=== PATIENT | female | born 1985 | race Caucasian/White ===

== ENCOUNTER 2017-01-25 13:32 | Emergency (ER) | payer OTHER ==
[2017-01-25 13:45] VITALS: RESP 18
--- NOTE | 2017-01-25 14:14 | ED ---
Seizure HPI - General Chief Complaint: Seizure Stated Complaint: seizure Time Seen by Provider: 01/25/17 13:43 Source: patient, EMS, RN notes reviewed Mode of arrival: EMS Limitations: no limitations - History of Present Illness Initial Comments: This a 31-year-old female presents emergency department via EMS for seizure. Patient was on the bus and had a seizure. She has a known history of SEIZURES. Patient takes Keppra and states that she has been taking her medication. Patient states that she sees Dr. yang for her neurologist. Patient states she has mild headache but states is normal for after having seizure. She denies any chest pain, shortness breath, fever, chills, blurred vision or any focal weakness. Patient states she is diabetic and does take metformin and Lantus. - Related Data Home Medications Medication Instructions Recorded Confirmed Acetaminophen Tab [Tylenol Tab] 650 mg PO Q6H PRN 01/25/17 01/25/17 Albuterol Inhaler [Ventolin Hfa 2 puff INHALATION RT-QID PRN 01/25/17 01/25/17 Inhaler] Insulin Glargine [Lantus] 40 unit SQ HS 01/25/17 01/25/17 levETIRAcetam [Keppra] 1,000 mg PO DAILY 01/25/17 01/25/17 metFORMIN HCL 1,000 mg PO BID 01/25/17 01/25/17 Allergies Allergy/AdvReac Type Severity Reaction Status Date / Time bee pollen Allergy Anaphylaxis Verified 01/25/17 14:21 cephalexin [From Keflex] Allergy Rash/Hives Verified 01/25/17 14:21 divalproex sodium Allergy Anaphylaxis Verified 01/25/17 14:21 [From Depakote] Penicillins Allergy Rash/Hives Verified 01/25/17 14:21 AMBEREN Allergy Anaphylaxis Uncoded 01/25/17 14:21 CHESTNUTS Allergy Unknown Uncoded 01/25/17 14:21 PAPER TAPE Allergy Rash/Hives Uncoded 01/25/17 14:21 Review of Systems ROS Statement: Those systems with pertinent positive or pertinent negative responses have been documented in the HPI. ROS Other: All systems not noted in ROS Statement are negative. Past Medical History Past Medical History: Asthma, Diabetes Mellitus, Hypertension, Seizure Disorder History of Any Multi-Drug Resistant Organisms: None Reported Past Surgical History: No Surgical Hx Reported Past Psychological History: No Psychological Hx Reported Smoking Status: Never smoker Past Alcohol Use History: None Reported Past Drug Use History: None Reported General Exam Limitations: no limitations General appearance: alert, in no apparent distress, obese Head exam: Present: atraumatic, normocephalic, normal inspection Eye exam: Present: normal appearance, PERRL, EOMI. Absent: scleral icterus, conjunctival injection, periorbital swelling ENT exam: Present: normal exam, normal oropharynx, mucous membranes moist, TM's normal bilaterally, normal external ear exam Neck exam: Present: normal inspection, full ROM. Absent: tenderness, meningismus, lymphadenopathy Respiratory exam: Present: normal lung sounds bilaterally. Absent: respiratory distress, wheezes, rales, rhonchi, stridor Cardiovascular Exam: Present: regular rate, normal rhythm, normal heart sounds. Absent: systolic murmur, diastolic murmur, rubs, gallop, clicks Extremities exam: Present: normal inspection, full ROM, normal capillary refill. Absent: tenderness, pedal edema, joint swelling, calf tenderness Neurological exam: Present: alert, oriented X3, CN II-XII intact Skin exam: Present: warm, dry, intact, normal color. Absent: rash Course Vital Signs 01/25/17 01/25/17 01/25/17 13:41 14:26 15:00 Temperature 97.6 F Pulse Rate 85 80 86 Respiratory 18 18 18 Rate Blood Pressure 109/66 102/61 125/81 O2 Sat by Pulse 98 96 97 Oximetry Medical Decision Making - Lab Data Result diagrams: 01/25/17 13:57 01/25/17 13:57 Lab Results 01/25/17 01/25/17 Range/Units 13:57 13:57 WBC 9.3 (3.8-10.6) k/uL RBC 4.75 (3.80-5.40) m/uL Hgb 14.0 (11.4-16.0) gm/dL Hct 40.6 (34.0-46.0) % MCV 85.4 (80.0-100.0) fL MCH 29.4 (25.0-35.0) pg MCHC 34.4 (31.0-37.0) g/dL RDW 12.2 (11.5-15.5) % Plt Count 201 (150-450) k/uL Neutrophils % 56 % Lymphocytes % 35 % Monocytes % 5 % Eosinophils % 1 % Basophils % 1 % Neutrophils # 5.2 (1.3-7.7) k/uL Lymphocytes # 3.2 (1.0-4.8) k/uL Monocytes # 0.4 (0-1.0) k/uL Eosinophils # 0.1 (0-0.7) k/uL Basophils # 0.1 (0-0.2) k/uL Sodium 141 (137-145) mmol/L Potassium 4.3 (3.5-5.1) mmol/L Chloride 105 (98-107) mmol/L Carbon Dioxide 22 (22-30) mmol/L Anion Gap 14 mmol/L BUN 20 H (7-17) mg/dL Creatinine 0.94 (0.52-1.04) mg/dL Est GFR (MDRD) Af Amer >60 (>60 ml/min/1.73 sqM) Est GFR (MDRD) Non-Af >60 (>60 ml/min/1.73 sqM) Glucose 152 H (74-99) mg/dL Calcium 9.2 (8.4-10.2) mg/dL Total Bilirubin 0.9 (0.2-1.3) mg/dL AST 21 (14-36) U/L ALT 35 (9-52) U/L Alkaline Phosphatase 90 (38-126) U/L Total Protein 6.9 (6.3-8.2) g/dL Albumin 4.0 (3.5-5.0) g/dL 01/25/17 16:06 EKG performed at 13:43 normal sinus rhythm with possible left atrial enlargement with a rate of 91 CT interval 166 QS duration 84 QTC is QTC 360/442 Disposition Clinical Impression: Generalized seizure Disposition: HOME SELF-CARE Condition: Stable Instructions: Recurrent Seizures in Adults (ED) Additional Instructions: Please return to the Emergency Department if symptoms worsen or any other concerns. Referrals: Nonstaff,Physician [REFERRING] - 1-2 days Time of Disposition: 16:08
[2017-01-25 14:17] LABS: Basophils # (A) 0.1 k/uL (0-0.2); Basophils % (A) 1 %; CH 29.3; CHCM 34.5; Eosinophils # (A) 0.1 k/uL (0-0.7); Eosinophils % (A) 1 %; HCT 40.6 % (34.0-46.0); HDW 2.38; Luc # (Auto) 0.23; Luc % (Auto) 3; Lymphocytes # (A) 3.2 k/uL (1.0-4.8); Lymphocytes % (A) 35 %; MCH 29.4 pg (25.0-35.0); MCHC 34.4 g/dL (31.0-37.0); MCV 85.4 fL (80.0-100.0); Mean Platelet Volume 9.2; Monocytes # (A) 0.4 k/uL (0-1.0); Monocytes % (A) 5 %; Neutrophils # (A) 5.2 k/uL (1.3-7.7); Neutrophils % (A) 56 %; RBC 4.75 m/uL (3.80-5.40); RDW 12.2 % (11.5-15.5); WBC 9.3 k/uL (3.8-10.6)
[2017-01-25 14:27] LABS: ALT 35 U/L (9-52); AST 21 U/L (14-36); Alkaline Phosphatase 90 U/L (38-126); Anion Gap 14 mmol/L; Blood Urea Nitrogen 20 mg/dL (7-17); Calcium 9.2 mg/dL (8.4-10.2); Carbon Dioxide 22 mmol/L (22-30); Chloride 105 mmol/L (98-107); Glucose 152 mg/dL (74-99); Non-African American GFR(MDRD) >60 (>60 ml/min/1.73 sqM); Potassium 4.3 mmol/L (3.5-5.1); Sodium 141 mmol/L (137-145); Total Bilirubin 0.9 mg/dL (0.2-1.3); Total Protein 6.9 g/dL (6.3-8.2)
[2017-01-25 16:16] VITALS: BP 129/83; PULSE 79; TEMP 98.9
== END 2017-01-25 16:16 | disposition home or self-care (01) ==
LOC: EC 13:32
DX: G40.409 Other generalized epilepsy and epileptic syndromes, not intractable, without status epilepticus (principal); E11.9 Type 2 diabetes mellitus without complications; Z88.1 Allergy status to other antibiotic agents; Z88.0 Allergy status to penicillin; Z91.048 Other nonmedicinal substance allergy status; Z88.8 Allergy status to other drugs, medicaments and biological substances; Z91.018 Allergy to other foods; Z79.4 Long term (current) use of insulin; Z79.84 Long term (current) use of oral hypoglycemic drugs; Z79.899 Other long term (current) drug therapy
CPT/HCPCS: 36415; 80053; 80177; 80306; 85025; 93005; 99284

== ENCOUNTER 2017-11-12 12:30 | Inpatient (IN) | payer MEDICAID, OTHER ==
[2017-11-12 15:10] VITALS: BMI 49.9
[2017-11-12] MEDS ORDERED: MAG HYDROX/AL HYDROX/SIMETH 30 ML CUP PO PRN (15:28)
[2017-11-12] MEDS ORDERED: MAGNESIUM HYDROXIDE 2,400 MG/10 ML CUP PO PRN (15:28)
[2017-11-12] MEDS ORDERED: ACETAMINOPHEN TAB 325 MG TAB PO PRN (15:28)
[2017-11-12] MEDS ORDERED: hydrOXYzine PAMOATE 25 MG CAP PO PRN (15:44)
[2017-11-12 15:53] LABS: Glucose,Whole Blood 139 mg/dL (75-99)
--- NOTE | 2017-11-12 16:03 | P.HP ---
Psychiatric H&P - . H&P Date: 11/12/17 History & Physical: Allergies Allergy/AdvReac Type Severity Reaction Status Date / Time amoxicillin Allergy Rash/Hives Verified 11/12/17 14:48 bee pollen Allergy Anaphylaxis Verified 11/12/17 14:48 cephalexin [From Keflex] Allergy Rash/Hives Verified 11/12/17 14:48 divalproex sodium Allergy Anaphylaxis Verified 11/12/17 14:48 [From Depakote] imipramine Allergy Unknown Verified 11/12/17 14:48 levofloxacin [From Levaquin] Allergy Unknown Verified 11/12/17 14:48 Penicillins Allergy Rash/Hives Verified 11/12/17 14:48 AMBEREN Allergy Anaphylaxis Uncoded 01/25/17 14:21 CHESTNUTS Allergy Unknown Uncoded 01/25/17 14:21 PAPER TAPE Allergy Rash/Hives Uncoded 01/25/17 14:21 Vital Signs Temp 98.3 F 11/12/17 14:43 Pulse 95 11/12/17 14:43 Resp 18 11/12/17 14:43 BP 125/94 11/12/17 14:43 Pulse Ox Intake & Output 11/11/17 11/12/17 11/12/17 18:59 06:59 18:59 Weight 127.9 kg 11/12/17 15:46 Identification: Mariana Verdin is a 32 years old white female living in [facility] she was admitted to [facility] on 2017 under petition stating that she is suicidal. History of present illness: Patient said she has been upset about her pending divorce, her coming in and out getting into argument which they had prior to her recent incident of cutting herself. She said she has anxiety and depression since she was a kid she said it is continuous and doesn't get better or worse. She said she gets panic attacks at times on a weekly basis depending on the situation lasting from 5-10 minutes. She said she has PTSD since 2002 since her son was removed from her custody for medical neglect. She gets flashbacks and nightmares of this incident. She also gets nightmares about her traumas from childhood. She had tried to hang herself and cut herself multiple times until she was 14 years of age. She denies any issues with throwing temper tantrums. She denies hearing voices or delusional thinking. Previous psychiatric history/drug and alcohol abuse: She was in psychiatric hospitals about 30 times from age [age]. Since age 14 she was in psychiatric hospital only wants. She takes Ativan 1 mg twice a day on a when necessary basis for anxiety this is prescribed by her family doctor she denies abusing drugs and alcohol. Next Previous medical history she is ALLERGIC to amoxicillin bee stings Keflex Depakote imipramine Levaquin penicillins Ambien chestnuts and paper tape. She has diabetes bronchial asthma and seizure disorder. She does not have any menstrual periods since she is on Depo-Provera. She has 4 children and had to spontaneous abortions. She had tonsillectomy and adenoidectomy and tubes put in her ears. Social history: She quit the school in 12th grade. She said she had ADHD but it is gone since becoming an adult. She was cutting classes and was suspended several times. She was put in foster home at the age of 5 since her mother could not take care of her. She was in several foster homes. She was living with her for about 23 years and has been for the last 7-8 years. They have been since August 2017. Currently she lives with her 3 children. One son has a court hearing for 7 counts of behavior problems. She is on SSI and has Medicaid. She was not in the service. She is [employer] and goes to [employer]. She has pending divorce. She is heterosexual. Family history: Her father of stroke he also had hypertension. Mother apparently has schizophrenia and some depression. One son has behavioral problems. Mental status examination: This is an obese ambulatory white female with adequate hygiene. She has multiple scratch vasquez on both forearms likes etc. which were self-inflicted recently. Her speech is spontaneous relevant and goal -directed. Mood is mildly anxious and dysphoric with labile affect. She denies hallucinations and delusional thinking. She insists that she is not suicidal or homicidal. Her insight is fair and judgment is impaired as evidenced by her recent self abusive behavior. She is well oriented. She is able to recall 2 out of 3 items after 5 minutes. She is able to name only the last 2 presidents when she was asked to name the last 4. She is able to spell house correctly but spelled it backwards as [facility]. She said [id number] and 56 is 30. 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 Diabetes mellitus Bronchial asthma Seizure disorder Obesity. Treatment plan: She will have physical examination and psychosocial evaluation. She will receive milieu therapy group therapy individual therapy occupational therapy recreational therapy and medication education She will not eat placed on suicide precautions since she promised not to do anything to hurt herself and her recent behavior appears to be only results of her personality disorder of self abusive behavior than a suicide attempt. Vistaril on when necessary basis for anxiety. Will continue Keppra, insulin and albuterol inhaler for physical problems. She agreed to sign voluntary application to stay in the hospital. Discharge with outpatient follow-up. Treatment goals: She will be free of self abusive behavior. She will learn better coping skills. Estimated length of stay: 3-5 days.
--- NOTE | 2017-11-12 17:47 | P.HPIM ---
History of Present Illness H&P Date: 11/12/17 Chief Complaint: suicidal Patient is a 32-year-old female with a past medical history of diabetes, asthma, seizure disorder, and morbid obesity. She is admitted to the mental health unit for suicidal behaviors. Patient seen and examined at bedside. She says she's been under increased stress secondary to her divorce and has been self inflicting wounds. She has a history of diabetes and has been on metformin for years. In the past her blood sugars have been up to 1000. They have been slowly coming down. She is to take Lantus but now has only been taking it as needed. She takes metformin thousand milligrams twice daily. She states her recent blood sugars have been around 130. Her last hemoglobin A1c was in September and she states it was 7.8. She has been losing weight and has lost approximately 100 pounds. She had pneumonia back in September but has otherwise not had any recent illnesses. She states her blood pressure was up when she was in the emergency department but it has never been up before. She states that her last seizure was yesterday. She has these intermittently and was unable to tell me how often she has seizures. She does follow with a neurologist in [place]. Review of Systems General: no fever/chills, no rigors, weight loss-intentional, no unusual fatigue Eyes: no noticeable visual changes, no loss of vision ENT: no rhinorrhea, no congestion, no sore throat Cardiovascular: no chest pain, no palpitations, no preyncope/syncope, no edema Pulmonary: no shortness of breath, no wheezing, no cough Abdominal: no abdominal pain, no constipation, no diarrhea, no vomiting, no nausea Genitourinary: no dysuria, no urinary frequency, no unusual discharge/odor Neuro: no unusual parenthesia, no unusual paresis/paralysis, no headache Dermatologic: no unusual rashes, no unusual lesions, no unusual changes in nails Hematologic: no hemoptysis, no hematuria, no melena/hematochezia Psychiatric: + Depression/anxiety, no changes in sleep pattern Past Medical History Past Medical History: Asthma, Diabetes Mellitus, Seizure Disorder History of Any Multi-Drug Resistant Organisms: None Reported Past Surgical History: Adenoidectomy, Tonsillectomy Additional Past Surgical History / Comment(s): Tympanostomy tubes, uvula removed Smoking Status: Never smoker Past Alcohol Use History: Occasional Past Drug Use History: None Reported Additional History: Lives with her children, going throgh divorce - Past Family History Father Additional Family Medical History / Comment(s): CVA, HTN Medications and Allergies Home Medications Medication Instructions Recorded Confirmed Type Albuterol Inhaler [Ventolin Hfa 2 puff INHALATION RT-Q4H PRN 01/25/17 11/12/17 History Inhaler] levETIRAcetam [Keppra] 1,000 mg PO DAILY 01/25/17 11/12/17 History metFORMIN HCL 1,000 mg PO BID 01/25/17 11/12/17 History Insulin Glargine,Hum.rec.anlog 40 unit SQ HS 11/12/17 11/12/17 History [Lantus Solostar] LORazepam [Ativan] 1 mg PO DAILY PRN 11/12/17 11/12/17 History Allergies Allergy/AdvReac Type Severity Reaction Status Date / Time amoxicillin Allergy Rash/Hives Verified 11/12/17 14:48 bee pollen Allergy Anaphylaxis Verified 11/12/17 14:48 cephalexin [From Keflex] Allergy Rash/Hives Verified 11/12/17 14:48 divalproex sodium Allergy Anaphylaxis Verified 11/12/17 14:48 [From Depakote] imipramine Allergy Unknown Verified 11/12/17 14:48 levofloxacin [From Levaquin] Allergy Unknown Verified 11/12/17 14:48 Penicillins Allergy Rash/Hives Verified 11/12/17 14:48 AMBEREN Allergy Anaphylaxis Uncoded 01/25/17 14:21 CHESTNUTS Allergy Unknown Uncoded 01/25/17 14:21 PAPER TAPE Allergy Rash/Hives Uncoded 01/25/17 14:21 Physical Exam Osteopathic Statement: *. No significant issues noted on an osteopathic structural exam other than those noted in the History and Physical/Consult. Vitals: Vital Signs Temp Pulse Resp BP 11/12/17 14:43 98.3 F 95 18 125/94 Intake and Output 11/12/17 11/12/17 11/12/17 06:59 14:59 22:59 Other: Weight 127.9 kg Patient Weight 11/13/17 06:59 Weight 127.9 kg General: non toxic, no distress, appears at stated age, Obese Derm: multiple excoriations no unusual ecchymoses, warm, dry Head: atraumatic, normocephalic, symmetric Eyes: EOMI, no lid lag, anicteric sclera, pupils equal round reactive to light ENT: Nose and ears atraumatic, no thrush, no pharyngeal erythema Neck: No thyromegaly, no cervical lymphadenopathy, trachea midline, supple Mouth: no lip lesion, mucus membranes moist, absent uvula Cardiovascular: S1S2 reg, no murmur, positive posterior tibial pulse bilateral, no edema, capillary refill less than 2 seconds Lungs: CTA bilateral, no rhonchi, no rales , no accessory muscle use Abdominal: soft, nontender to palpation, no guarding, no appreciable organomegaly, normal bowel sounds Ext: no gross muscle atrophy, muscle strength 5 out of 5 in all 4 extremities grossly, no contractures, Neuro: CN II-XI grossly intact, light touch intact all 4 extremities, finger to nose within normal limits, Psych: Alert, oriented, appropriate affect Results Labs: Abnormal Lab Results - Last 24 Hours (Table) 11/12/17 Range/Units 15:48 POC Glucose (mg/dL) 139 H (75-99) mg/dL Thrombosis Risk Factor Assmnt - DVT/VTE Prophylaxis DVT/VTE Prophylaxis: Low risk, early ambulation encouraged Assessment and Plan Assessment: Diabetes mellitus, Type II - Metformin - Insulin sliding scale - Check A 1C - Check microalbumin Elevated BP - follow BP - no indication to start medication at this time Morbid obesity BMI 49.9 - continue weight loss Seizure d/o - keppra asthma - prn albuterol Suicidal ideation - your psych management Thank you for allowing us to participate in the care of this patient. We will follow peripherally. Do not hesitate to contact us with questions. Someone can be reached from the [facility] hospitalist group at all hours of the day at [phone].
[2017-11-12] MEDS: INSULIN ASPART 100 UNIT/ML 1 ML 10 ML VIAL SQ SCH ×2 (18:00→21:53)
[2017-11-12 18:01] LABS: Glucose,Whole Blood 196 mg/dL (75-99)
[2017-11-12] MEDS: metFORMIN 500 MG TAB PO SCH ×2 (18:01→19:07)
[2017-11-12] MEDS: LORazepam 1 MG TAB PO PRN (19:09)
[2017-11-12 20:10] LABS: Glucose,Whole Blood 159 mg/dL (75-99)
[2017-11-12 20:49] LABS: Glucose,Whole Blood 141 mg/dL (75-99)
[2017-11-12] MEDS ORDERED: INSULIN DETEMIR 100 UNIT/ML 10 ML VIAL SQ SCH (21:00)
[2017-11-13 06:22] LABS: Glucose,Whole Blood 135 mg/dL (75-99)
[2017-11-13] MEDS: INSULIN ASPART 100 UNIT/ML 1 ML 10 ML VIAL SQ SCH ×4 (07:34→20:23)
[2017-11-13] MEDS: levETIRAcetam 500 MG TAB PO SCH (08:09)
[2017-11-13] MEDS: metFORMIN 500 MG TAB PO SCH ×2 (08:09→17:53)
[2017-11-13 09:55] LABS: ALT 44 U/L (9-52); AST 27 U/L (14-36); Albumin 4.1 g/dL (3.5-5.0); Alkaline Phosphatase 73 U/L (38-126); Anion Gap 13 mmol/L; Blood Urea Nitrogen 11 mg/dL (7-17); Calcium 9.6 mg/dL (8.4-10.2); Carbon Dioxide 21 mmol/L (22-30); Chloride 106 mmol/L (98-107); Glucose 245 mg/dL (74-99); Potassium 4.6 mmol/L (3.5-5.1); Sodium 140 mmol/L (137-145); Total Bilirubin 1.4 mg/dL (0.2-1.3); Total Protein 6.9 g/dL (6.3-8.2)
--- NOTE | 2017-11-13 10:44 | P.PN ---
Progress Note - Text Progress Note Date: 11/13/17 Patient was seen for a follow-up examination. She said she had talked to her nephrology social worker and thinks she will be able to go home tomorrow. She said her major focus is on her children and to be with them. She is okay if her comes back to her life or not. She said she is settling down does not feel suicidal and homicidal or hurting herself. This is an obese ambulatory white female with adequate hygiene. She does not show any psychomotor agitation or retardation. Her speech is spontaneous relevant and goal-directed. Her mood is mildly anxious and affect is appropriate. She denies hallucinations, delusional thinking, suicidal and homicidal ideas. She is oriented with adequate memory concentration etc. Plan: Continue groups, when necessary Vistaril and medications for her physical problems.
[2017-11-13] MEDS: LORazepam 1 MG TAB PO PRN (12:15)
[2017-11-13] MEDS: ALBUTEROL INHALER 60 PUFF/8 GM INHALER INHALATION PRN ×2 (12:18→19:53)
[2017-11-13 12:32] LABS: Glucose,Whole Blood 133 mg/dL (75-99)
[2017-11-13 17:31] LABS: Glucose,Whole Blood 176 mg/dL (75-99)
[2017-11-13 20:16] LABS: Glucose,Whole Blood 167 mg/dL (75-99)
[2017-11-13] MEDS: FAMOTIDINE 20 MG TAB PO SCH (20:25)
[2017-11-13 21:31] LABS: Hemoglobin A1C 8.1 % (4.0-6.0)
[2017-11-14 04:17] VITALS: TEMP 97.8
[2017-11-14 04:21] LABS: Glucose,Whole Blood 167 mg/dL (75-99)
[2017-11-14 04:30] VITALS: BP 132/79; PULSE 74; RESP 16
[2017-11-14] MEDS: LORazepam 1 MG TAB PO PRN (04:40)
[2017-11-14 07:10] LABS: Glucose,Whole Blood 184 mg/dL (75-99)
[2017-11-14] MEDS: INSULIN ASPART 100 UNIT/ML 1 ML 10 ML VIAL SQ SCH (08:01)
[2017-11-14] MEDS: metFORMIN 500 MG TAB PO SCH (08:02)
--- NOTE | 2017-11-14 08:57 | P.DS ---
Providers Date of admission: 11/12/17 14:05 Expected date of discharge: 11/14/17 Attending physician: Elvia Acevedo Consults: 11/12/17 15:28 Consult Physician Routine Consulting Provider: [facility] Consult Reason/Comments: H and P and Medical management Do you want consulting provider notified?: Yes [facility] Course: After patient was admitted she had her psychiatric evaluation physical examination and psychosocial evaluation. She was started only on Vistaril on a when necessary basis for anxiety/agitation etc. She also received milieu therapy group therapy individual therapy occupational therapy recreational therapy and medication education. She did well with all these, continued to be not suicidal or homicidal and agreed to comply with outpatient treatment. She also talked with her and apparently they are working on getting back to grandmother. In view of all these it was agreed to discharge her. Condition on discharge: This is an obese ambulatory white female with adequate hygiene she is polite and friendly cheerful and cooperative. She does not show any psychomotor agitation or retardation. Her speech is spontaneous relevant and goal-directed. Her mood is euthymic and affect is appropriate to the thought content. She continues to deny suicidal and homicidal ideas. She is well oriented with adequate memory concentration general fund of knowledge etc. her insight and judgment are adequate. 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 Patient was advised to take her medications as prescribed, not to drink alcohol or use drugs, to learn better coping skills through therapy, to seek DBT, not to drive or operate machinery, to call her therapist and if she cannot reach the therapist to go to the nearest ER if she has any thoughts of hurting herself or others, to see the dietitian and try to lose weight. She agreed with all these recommendations. Patient Condition at Discharge: Stable Plan - Discharge Summary Discharge Rx Participant: No New Discharge Prescriptions: Continue levETIRAcetam [Keppra] 1,000 mg PO DAILY Albuterol Inhaler [Ventolin Hfa Inhaler] 2 puff INHALATION RT-Q4H PRN PRN Reason: Shortness Of Breath metFORMIN HCL 1,000 mg PO BID Insulin Glargine,Hum.rec.anlog [Lantus Solostar] 40 unit SQ HS Discontinued LORazepam [Ativan] 1 mg PO DAILY PRN PRN Reason: Anxiety Discharge Medication List Albuterol Inhaler [Ventolin Hfa Inhaler] 2 puff INHALATION RT-Q4H PRN 01/25/17 [ History] levETIRAcetam [Keppra] 1,000 mg PO DAILY 01/25/17 [History] metFORMIN HCL 1,000 mg PO BID 01/25/17 [History] Insulin Glargine,Hum.rec.anlog [Lantus Solostar] 40 unit SQ HS 11/12/17 [History ] Discharge Disposition: HOME SELF-CARE
[2017-11-14] MEDS: FAMOTIDINE 20 MG TAB PO SCH (09:19)
[2017-11-14] MEDS: levETIRAcetam 500 MG TAB PO SCH (09:19)
[2017-11-14] MEDS: ALBUTEROL INHALER 60 PUFF/8 GM INHALER INHALATION PRN (09:47)
== END 2017-11-14 11:34 | disposition home or self-care (01) | DRG 882 ==
LOC: 3MHU 14:05
PROVIDERS: ADMIT Psychiatry & Neurology Psychiatry; ATTEND Psychiatry & Neurology Psychiatry
DX: F43.25 Adjustment disorder with mixed disturbance of emotions and conduct (principal); R45.851 Suicidal ideations; E66.01 Morbid (severe) obesity due to excess calories; E11.9 Type 2 diabetes mellitus without complications; F41.0 Panic disorder [episodic paroxysmal anxiety]; F43.10 Post-traumatic stress disorder, unspecified; F60.3 Borderline personality disorder; F90.9 Attention-deficit hyperactivity disorder, unspecified type; G40.909 Epilepsy, unspecified, not intractable, without status epilepticus; J45.909 Unspecified asthma, uncomplicated; R03.0 Elevated blood-pressure reading, without diagnosis of hypertension; Z68.42 Body mass index [BMI] 45.0-49.9, adult; Z79.84 Long term (current) use of oral hypoglycemic drugs; Z79.899 Other long term (current) drug therapy; Z88.1 Allergy status to other antibiotic agents; Z88.8 Allergy status to other drugs, medicaments and biological substances; Z91.018 Allergy to other foods; Z91.048 Other nonmedicinal substance allergy status; Z88.0 Allergy status to penicillin; Z82.49 Family history of ischemic heart disease and other diseases of the circulatory system; Z81.8 Family history of other mental and behavioral disorders
CPT/HCPCS: 80053; 83036; 84443; 94640

== ENCOUNTER 2023-01-16 06:38 | Day surgery (SDC) | payer MEDICARE, OTHER ==
[2023-01-14 14:59] VITALS: BMI 50.8
[2023-01-16] MEDS ORDERED: LACTATED RINGERS 1,000 ML IV SCH (07:03)
[2023-01-16] MEDS ORDERED: ONDANSETRON 4 MG/2 ML VIAL ONE (07:21)
[2023-01-16] MEDS ORDERED: ONDANSETRON 4 MG/2 ML VIAL IVP ONE (07:25)
[2023-01-16] MEDS ORDERED: MIDAZOLAM 2 MG/2 ML VIAL IVP ONE (07:26)
[2023-01-16 07:29] VITALS: TEMP 97.4
[2023-01-16 07:33] LABS: Glucose,Whole Blood 181 mg/dL (70-110)
[2023-01-16] MEDS ORDERED: LIDOCAINE 2% INJ 20 MG/ML (2 ML VIAL) ONE (07:41)
[2023-01-16] MEDS ORDERED: PROPOFOL 10 MG/ML 20 ML VIAL IV ONE (07:41)
--- NOTE | 2023-01-16 08:06 | P.PCN ---
Date of Procedure: 01/16/23 Procedure(s) Performed: Brief history: Patient is a pleasant 37-year-old white female scheduled for an elective upper endoscopy as well as colonoscopy as a part of evaluation of abdominal pain/intermittent nausea vomiting for the last 1 year duration associated with change in bowel habits. She has been on omeprazole 40 mg daily with no help in her symptoms. Procedure performed: Esophagogastroduodenoscopy with biopsy Colonoscopy Preoperative diagnosis: Epigastric pain/intermittent nausea vomiting of one year duration Change in bowel habits Anesthesia: MAC Procedure: After informed consent was obtained from the patient was brought into the endoscopy unit and IV sedation was administered by anesthesia under continuous monitoring. Initially upper endoscopy was done. The Olympus GF 160 video endoscope was inserted inserted into the mouth and esophagus intubated without any difficulty and was gradually advanced into the stomach and duodenum and carefully examined. The bulb and second part of the duodenum appeared normal. Biopsies were done from the duodenum to rule out celiac disease. The scope was then withdrawn into the stomach adequately insufflated with air and upon careful examination the antrum mild gastritis and biopsies were done from this area. Mucosa of the body, cardia and fundus appeared normal. The scope was then withdrawn into the esophagus. The GE junction was located at 38 cm to the incisors. It appeared regulinear erosions consistent with LA grade B reflux esophagitis.est of the esophagus appeared normal. Patient tolerated the procedure well. At this time the patient continued to remain sedation. Initial digital rectal examination was normal. Olympus CF 160 video colonoscope was then inserted into the rectum and gradually advanced to the cecum without any difficulty. Careful examination was performed as the scope was gradually being withdrawn. The prep was excellent. The cecum, ascending colon, transverse colon, descending colon, sigmoid colon and rectum appeared normal. Retroflexion was performed in the rectum and no lesions were noted. Patient tolerated the procedure well. Impression: 1. Upper endoscopy revealed linear erosions in the distal esophagus consistent with LA grade B reflux esophagitis, small hiatal hernia and mild antral gastritis 2. Colonoscopy was within normal limits with no evidence of colitis or colorectal neoplasia Recommendations: Findings of this examination were discussed with the patient as well as her family. She was advised to follow with the biopsy results. Recommend increasing the omeprazole 40 mg twice daily and follow antireflux measures. Follow up in office in 3-4 weeks repeat colonoscopy in 10 years.
[2023-01-16 08:54] VITALS: RESP 16
[2023-01-16 08:55] VITALS: BP 109/81; PULSE 80
[2023-01-16 09:00] LABS: Glucose,Whole Blood 168 mg/dL (70-110)
== END 2023-01-16 09:28 | disposition home or self-care (01) ==
LOC: ORWHC2ENDO 06:38
PROVIDERS: ATTEND Internal Medicine Gastroenterology
DX: K29.50 Unspecified chronic gastritis without bleeding (principal); K21.9 Gastro-esophageal reflux disease without esophagitis; J45.909 Unspecified asthma, uncomplicated; E11.9 Type 2 diabetes mellitus without complications; G40.909 Epilepsy, unspecified, not intractable, without status epilepticus; F12.90 Cannabis use, unspecified, uncomplicated; Z88.0 Allergy status to penicillin; Z88.5 Allergy status to narcotic agent; Z88.8 Allergy status to other drugs, medicaments and biological substances; Z79.82 Long term (current) use of aspirin; Z86.73 Personal history of transient ischemic attack (TIA), and cerebral infarction without residual deficits; Z79.899 Other long term (current) drug therapy
CPT/HCPCS: 81025; 45378; 43239; J2250; J2405; J2704; J2001; 88305